=== PATIENT | female | born 1985 ===

== ENCOUNTER 2021-12-15 11:09 | Emergency (ER) | payer MEDICAID, SELFPAY ==
[2021-12-15 11:29] VITALS: BP 101/69; PULSE 101; RESP 18; TEMP 36.7; O2SAT 95; BMI 42.3
--- NOTE | 2021-12-15 11:52 | ED.NAVMDI ---
HPI - Nausea/Vomiting/Diarrhea General Chief complaint: Nausea/Vomiting/Diarrhea Stated complaint: Dizzy/vomiting Time Seen by Provider: 12/15/21 11:47 Source: patient Mode of arrival: ambulatory Limitations: no limitations History of Present Illness HPI Narrative: 36-year-old female presents to the ER for evaluation of nausea, vomiting and diarrhea that started at 02:00. She reports eating a steak and cheese Grater last night at 6 or 07:00 o'clock but had no pain or issues right after. Her entire family had pizza the day before. She reports several members of her family at home were also having similar symptoms. She denies any abdominal pain but reports some back pain now as well as fatigue, generalized body pain and intermittent dizziness. MD elicited complaint: nausea, vomiting and diarrhea Onset (ago): hour(s) Description of vomiting: food contents Description of diarrhea: semi-solid and loose Associated nausea: Yes Associated abdominal pain: No Location of pain: none Pain consistency: intermittent Severity: moderate Exacerbating factors: eating Relieving factors: none Context: possible food poisoning Associated symptoms: myalgias, fever/chills, loss of appetite, malaise, nausea/vomiting and weakness Related Data Previous Rx's Medication Instructions Recorded ibuprofen 600 mg tablet 600 mg PO Q8H PRN #10 tab 12/15/21 ondansetron 4 mg disintegrating 4 mg PO Q8H PRN #7 tab 12/15/21 tablet Allergies Allergy/AdvReac Type Severity Reaction Status Date / Time penicillin V Allergy Unknown Unverified 10/27/16 00:00 Penicillins [PCN] Allergy Unknown UNKNOWN Unverified 07/05/20 19:02 Review of Systems Review of Systems: Constitutional: No Fever, + Chills ENT/Mouth: No sore throat, No Rhinorrhea, No Swallowing Difficulty Cardiovascular: No Chest Pain, No SOB, No Orthopnea, No Edema Respiratory: No Cough, No Sputum, No Wheezing, No dyspnea Gastrointestinal: + Nausea, + Vomiting, + Diarrhea, No abdominal Pain, No Hematochezia, No Melena Genitourinary: No Dysuria, No Urinary Frequency, No Hematuria Musculoskeletal: No joint pain, + Myalgias Skin: No Skin Lesions, No rash Neuro: + Weakness, No Numbness, + Dizziness, No Headache Heme/Lymph: No Bruising, No Lymphadenopathy Endocrine: No Polyuria, No Polydipsia Gastrointestinal: Gastrointestinal: Reports nausea PMFSH Past Medical History Medical History (Updated 12/15/21 @ 13:15 by SPENCER Self) COVID-19 Depression Herpes simplex Hypoglycemia Hypothyroid Thalassemia alpha carrier Social History Social History Advance Directives: No Advance Directives Information Provided: No Patient : No Physical Exam Vital Signs: Vital Signs: Last Vital Signs Temp 99.5 F 12/15/21 12:18 Pulse 102 H 12/15/21 12:18 Resp 16 12/15/21 12:18 BP 114/59 L 12/15/21 12:18 Pulse Ox 96 12/15/21 12:18 BMI result Body Mass Index 42.3 Appearance: Alert. Oriented X3. No acute distress. Eyes: Pupils equal, round and reactive to light. ENT: Pharynx normal. Moist mucous membranes. Neck: Normal inspection. Neck supple. CVS: Normal heart rate and rhythm. Pulses normal. Respiratory: No respiratory distress. Breath sounds normal. Abdomen: Obese, Soft and nontender. +BS x4 Skin: Skin warm and dry. Normal skin color. Normal skin turgor. No rashes. Extremities: Normal inspection x4, atraumatic. Neuro: Oriented X 3. Grossly normal, nonfocal Course Course Course Narrative: 36-year-old female presents to the ER with acute onset of nausea, vomiting, diarrhea this started at 02:00 this morning. Multiple members of her family have the same symptoms. Question food related versus viral gastroenteritis. Will check her lab workup and rule out metabolic derangements given her muscle pains. Will check COVID swab as well. IV fluids and Zofran ordered. Will reassess. Reevaluation(s) Reevaluation #1: Patient is feeling better after IV hydration. Her lab workup is unremarkable. She is tolerating p.o.. She is stable for discharge home with antiemetics and supportive care. Patient agrees with plan. MDM - Nausea/Vomiting/Diarrhea Lab Data Result diagrams: 12/15/21 12:04 12/15/21 12:04 Labs: Lab Results 12/15/21 12/15/21 12/15/21 Range/Units 11:39 12:04 12:04 WBC 10.6 (4.8-10.8) X10*3/uL RBC 5.07 (4.20-5.50) X10*6/uL Hgb 13.1 (12.0-16.0) g/dl Hct 41.7 (37.0-47.0) % MCV 82.2 (80.0-98.0) fL MCH 25.8 L (27.0-33.0) pg MCHC 31.4 (31.0-35.0) g/dl RDW 13.1 (11.0-16.0) % Plt Count 351 (160-400) X10*3/uL MPV 9.4 (9.4-12.3) fL Immature Gran % (Auto) 0.3 (0.0-0.4) % Neut % (Auto) 89.1 H (45-73) % Lymph % (Auto) 6.0 L (20-40) % [place] % (Auto) 4.2 (2-11) % Eos % (Auto) 0.2 (0-4) % Baso % (Auto) 0.2 (0-2) % Lymph # (Auto) 0.6 L (1.2-4.9) X10*3/uL [place] # (Auto) 0.5 (0.1-1.2) X10*3/uL Eos # (Auto) 0.0 (0.0-0.4) X10*3/uL Baso # (Auto) 0.0 (0.0-0.2) X10*3/uL Abs Immat Gran (auto) 0.03 (0.00-0.03) X10*3/uL Absolute Neuts (auto) 9.5 H (2.0-8.3) x10*3/uL Absolute Nucleated RBC 0.000 (0.0-0.012) X10*3/uL Nucleated RBC % (auto) 0.0 (0.0-0.2) /100WBC Sodium 136 (135-145) mmol/L Potassium 3.9 (3.3-5.1) mmol/L Chloride 104 (96-108) mmol/L Carbon Dioxide 24 (22-29) mmol/L Anion Gap 12 (12-20) BUN 18 H (9-16) mg/dL Creatinine 0.81 (0.5-1.4) mg/dL Estim Creat Clear Calc 111.2 Estimated GFR > 60 Random Glucose 106 (60-115) mg/dL Calcium 8.8 (8.4-10.2) mg/dL Magnesium 2.1 (1.6-2.6) mg/dL Total Bilirubin 0.7 (0.0-1.0) mg/dL Direct Bilirubin 0.2 (0.0-0.5) mg/dL AST 15 (5-31) U/L ALT 12 (0-31) U/L Alkaline Phosphatase 92 (39-117) U/L Total Protein 7.9 (6.5-8.0) g/dL Albumin 4.3 (3.5-5.0) g/dL Lipase 19 (8-78) U/L Urine Color Urine Appearance Urine pH (5.0-8.0) Ur Specific [place] (1.005-1.025) Urine Protein (NEG-TRACE) MG/DL Urine Glucose (UA) (NEG) MG/DL Urine Ketones (NEG) MG/DL Urine Blood (NEG) Urine Nitrite (NEG) Ur Leukocyte Esterase (NEG) Urine Test (NEGATIVE) COVID-19 (ARIE) Negative (Negative) COVID-19 Clin Com See Note 12/15/21 12/15/21 Range/Units 13:11 13:11 WBC (4.8-10.8) X10*3/uL RBC (4.20-5.50) X10*6/uL Hgb (12.0-16.0) g/dl Hct (37.0-47.0) % MCV (80.0-98.0) fL MCH (27.0-33.0) pg MCHC (31.0-35.0) g/dl RDW (11.0-16.0) % Plt Count (160-400) X10*3/uL MPV (9.4-12.3) fL Immature Gran % (Auto) (0.0-0.4) % Neut % (Auto) (45-73) % Lymph % (Auto) (20-40) % [place] % (Auto) (2-11) % Eos % (Auto) (0-4) % Baso % (Auto) (0-2) % Lymph # (Auto) (1.2-4.9) X10*3/uL [place] # (Auto) (0.1-1.2) X10*3/uL Eos # (Auto) (0.0-0.4) X10*3/uL Baso # (Auto) (0.0-0.2) X10*3/uL Abs Immat Gran (auto) (0.00-0.03) X10*3/uL Absolute Neuts (auto) (2.0-8.3) x10*3/uL Absolute Nucleated RBC (0.0-0.012) X10*3/uL Nucleated RBC % (auto) (0.0-0.2) /100WBC Sodium (135-145) mmol/L Potassium (3.3-5.1) mmol/L Chloride (96-108) mmol/L Carbon Dioxide (22-29) mmol/L Anion Gap (12-20) BUN (9-16) mg/dL Creatinine (0.5-1.4) mg/dL Estim Creat Clear Calc Estimated GFR Random Glucose (60-115) mg/dL Calcium (8.4-10.2) mg/dL Magnesium (1.6-2.6) mg/dL Total Bilirubin (0.0-1.0) mg/dL Direct Bilirubin (0.0-0.5) mg/dL AST (5-31) U/L ALT (0-31) U/L Alkaline Phosphatase (39-117) U/L Total Protein (6.5-8.0) g/dL Albumin (3.5-5.0) g/dL Lipase (8-78) U/L Urine Color YELLOW Urine Appearance CLEAR Urine pH 6.0 (5.0-8.0) Ur Specific [place] <= 1.005 (1.005-1.025) Urine Protein NEG (NEG-TRACE) MG/DL Urine Glucose (UA) NEG (NEG) MG/DL Urine Ketones NEG (NEG) MG/DL Urine Blood NEG (NEG) Urine Nitrite NEG (NEG) Ur Leukocyte Esterase NEG (NEG) Urine Test NEGATIVE (NEGATIVE) COVID-19 (ARIE) (Negative) COVID-19 Clin Com Critical Care Time Critical Care Time Critical Care Time: No Discharge Plan Discharge Clinical Impression: Gastroenteritis Patient Disposition: Home, Self-Care Instructions: Gastroenteritis (DC) Additional Instructions: Your lab workup today was normal. Urine test showed no infection. Your symptoms are most likely due to a viral GI bug also notes gastroenteritis. Treatment is supportive care. It will get better with time. Take the prescribed medication as needed for nausea and vomiting. Rest and stay hydrated, drink plenty of fluids. Stick to a bland diet where not feeling well. Take ibuprofen or acetaminophen as needed for body aches and pains. Recommend [id number] Pepto-Bismol or Imodium as needed for upset stomach and diarrhea. Follow-up with your doctor as needed. If you develop new or worsening symptoms call 911 or come back to the ER for further evaluation. Prescriptions: New ondansetron 4 mg tablet,disintegrating 4 mg PO Q8H PRN (Reason: nausea and vomiting) Qty: 7 0RF ibuprofen 600 mg tablet 600 mg PO Q8H PRN (Reason: pain) Qty: 10 0RF
[2021-12-15 12:01] LABS: COVID-19 Test Negative (Negative); IDNOW Serial# 16C4AD1C
[2021-12-15 12:09] LABS: MANUAL DIFF FLAG NO
[2021-12-15] MEDS: ondansetron HCL 4 MG/2 ML VIAL IVPUSH (12:12)
[2021-12-15] MEDS: 0.9 % Sodium Chloride 1,000 ML 999 ML IVCONT (12:12)
[2021-12-15 12:14] LABS: Basophils Percent Auto 0.2 % (0-2); Eosinophils Percent Auto 0.2 % (0-4); Hematocrit 41.7 % (37.0-47.0); Hemoglobin 13.1 g/dl (12.0-16.0); Imm Gran Abs Auto 0.03 X10*3/uL (0.00-0.03); Imm Gran Pct Auto 0.3 % (0.0-0.4); Lymphocytes Absolute Auto 0.6 X10*3/uL (1.2-4.9); Mean Corpuscular HGB Conc 31.4 g/dl (31.0-35.0); Mean Corpuscular Hemoglobin 25.8 pg (27.0-33.0); Mean Corpuscular Volume 82.2 fL (80.0-98.0); Mean Platelet Volume 9.4 fL (9.4-12.3); Monocytes Absolute Auto 0.5 X10*3/uL (0.1-1.2); Monocytes Percent Auto 4.2 % (2-11); Neutrophils Absolute Auto 9.5 x10*3/uL (2.0-8.3); Neutrophils Percent Auto 89.1 % (45-73); Platelet Count 351 X10*3/uL (160-400); Red Blood Count 5.07 X10*6/uL (4.20-5.50); Red Cell Distribution Width 13.1 % (11.0-16.0); White Blood Count 10.6 X10*3/uL (4.8-10.8)
[2021-12-15 12:18] VITALS: BP 114/59; PULSE 102; RESP 16; TEMP 37.5; O2SAT 96
[2021-12-15 12:29] LABS: Alanine Aminotransferase 12 U/L (0-31); Albumin Level 4.3 g/dL (3.5-5.0); Alkaline Phosphatase 92 U/L (39-117); Anion Gap 12 (12-20); Aspartate Amino Transferase 15 U/L (5-31); Bilirubin Direct 0.2 mg/dL (0.0-0.5); Bilirubin Total 0.7 mg/dL (0.0-1.0); Blood Urea Nitrogen 18 mg/dL (9-16); Calcium 8.8 mg/dL (8.4-10.2); Carbon Dioxide 24 mmol/L (22-29); Chloride 104 mmol/L (96-108); Creatinine Clr Calc Pharmacy 111.2; Estimated Glomerular Filt Rate > 60; Glucose Random 106 mg/dL (60-115); Lipase 19 U/L (8-78); Magnesium 2.1 mg/dL (1.6-2.6); Potassium 3.9 mmol/L (3.3-5.1); Sodium 136 mmol/L (135-145); Total Protein 7.9 g/dL (6.5-8.0)
[2021-12-15 13:25] LABS: Appearance Urine CLEAR; Color Urine YELLOW; Glucose Urine UA NEG (NEG); Leukocyte Esterase Urine NEG (NEG); Nitrite Urine NEG (NEG); Specific Gravity - Urine <= 1.005 (1.005-1.025); Urine Blood NEG (NEG); Urine Ketones NEG (NEG); Urine Protein NEG (NEG-TRACE)
[2021-12-15 13:27] LABS: UPreg QC Valid YES; Urine Pregnancy NEGATIVE (NEGATIVE)
[2021-12-15] MEDS: Ketorolac Tromethamine 30 MG/ML VIAL IVPUSH (13:37)
== END 2021-12-15 14:47 | disposition home or self-care (01) ==
PROVIDERS: Physician Assistant; Emergency Provider Emergency Medicine Emergency Medical Services; PCP Registered Nurse
DX: K52.9 Noninfective gastroenteritis and colitis, unspecified (principal); R11.2 Nausea with vomiting, unspecified; R42 Dizziness and giddiness; M79.10 Myalgia, unspecified site; Z20.822 Contact with and (suspected) exposure to COVID-19; Z79.899 Other long term (current) drug therapy
CPT/HCPCS: 36415; 80048; 80076; 81003; 81025; 83690; 83735; 85025; 87635; 96374; 96376; 99285; J1885; J2405

== ENCOUNTER 2022-08-05 19:27 | Emergency (ER) | payer MEDICAID, SELFPAY ==
--- NOTE | ~2022-08-05 | XR_ITS ---
EXAMINATION: XR CHEST CLINICAL INFORMATION: Chest pain COMPARISON: 01/06/2016 TECHNIQUE: Frontal view of the chest was obtained. FINDINGS: No significant abnormality is noted involving the heart, lungs, mediastinum, bony thorax or soft tissues. XR/XR chest 1V IMPRESSION: Unremarkable examination.
[2022-08-05 19:33] VITALS: BP 136/85; PULSE 77; RESP 16; TEMP 36.7; O2SAT 98; BMI 42.3
--- NOTE | 2022-08-05 19:38 | ECG_ITS ---
Test Reason : CHEST PAIN Blood Pressure : / mmHG Vent. Rate : 076 BPM Atrial Rate : 076 BPM P-R Int : 252 ms QRS Dur : 108 ms QT Int : 372 ms P-R-T Axes : 051 -11 006 degrees QTc Int : 418 ms Sinus rhythm with 1st degree A-V block Incomplete right bundle branch block Borderline ECG No previous ECGs available Referred By: Generic ED Physician Electronically Signed By:KEVAN VILLALOBOS MD
[2022-08-05 19:58] LABS: Basophils Absolute Auto 0.1 X10*3/uL (0.0-0.2); Basophils Percent Auto 0.5 % (0-2); Eosinophils Absolute Auto 0.1 X10*3/uL (0.0-0.4); Eosinophils Percent Auto 0.6 % (0-4); Hematocrit 36.8 % (37.0-47.0); Hemoglobin 11.8 g/dl (12.0-16.0); Imm Gran Abs Auto 0.03 X10*3/uL (0.00-0.03); Imm Gran Pct Auto 0.3 % (0.0-0.4); Lymphocytes Absolute Auto 2.9 X10*3/uL (1.2-4.9); Lymphocytes Percent Auto 30.8 % (20-40); MANUAL DIFF FLAG NO; Mean Corpuscular HGB Conc 32.1 g/dl (31.0-35.0); Mean Corpuscular Hemoglobin 25.8 pg (27.0-33.0); Mean Corpuscular Volume 80.3 fL (80.0-98.0); Mean Platelet Volume 9.5 fL (9.4-12.3); Monocytes Absolute Auto 0.7 X10*3/uL (0.1-1.2); Monocytes Percent Auto 7.4 % (2-11); Neutrophils Absolute Auto 5.6 x10*3/uL (2.0-8.3); Neutrophils Percent Auto 60.4 % (45-73); Platelet Count 295 X10*3/uL (160-400); Red Blood Count 4.58 X10*6/uL (4.20-5.50); Red Cell Distribution Width 13.3 % (11.0-16.0); White Blood Count 9.3 X10*3/uL (4.8-10.8)
[2022-08-05 20:10] LABS: Anion Gap 14 (12-20); Blood Urea Nitrogen 21 mg/dL (9-16); Calcium 8.9 mg/dL (8.4-10.2); Carbon Dioxide 22 mmol/L (22-29); Chloride 107 mmol/L (96-108); Creatinine Clr Calc Pharmacy 101.3; Estimated Glomerular Filt Rate > 60; Glucose Random 109 mg/dL (60-115); Potassium 4.2 mmol/L (3.3-5.1); Sodium 139 mmol/L (135-145)
[2022-08-05 20:12] LABS: COVID-19 Test Negative (Negative); IDNOW Serial# 16C4AD1C
[2022-08-05 20:16] LABS: Troponin-I High Sensitivity < 3.5 ng/L (<3.5-17.0)
--- NOTE | 2022-08-05 21:33 | ED.CHESTPAIN ---
HPI - Chest Pain General Chief Complaint: Chest Pain Stated Complaint: chest pain Time Seen by Provider: 08/05/22 21:20 Source: patient Mode of arrival: ambulatory Limitations: no limitations History of Present Illness HPI narrative: 37-year-old female with history of thyroid disease who presents with complaints of chest pressure which began while lying flat at 05:30 today with no associated palpitations, cough, shortness of breath, diaphoresis, fevers or chills. Patient has any recent travel or sick contact. No leg swelling or leg pain. No OCP use. Related Data Previous Rx's Medication Instructions Recorded ibuprofen 600 mg tablet 600 mg PO Q8H PRN pain #10 tabs 12/15/21 ondansetron 4 mg disintegrating 4 mg PO Q8H PRN nausea and 12/15/21 tablet vomiting #7 tabs Allergies Allergy/AdvReac Type Severity Reaction Status Date / Time penicillin V Allergy Unknown Unverified 10/27/16 00:00 Penicillins [PCN] Allergy Unknown UNKNOWN Unverified 07/05/20 19:02 Review of Systems Review of Systems: Yes all other systems are reviewed and are negative Constitutional: Constitutional: Reports no additional constitutional complaints, Denies body ache(s), Denies chills, Denies fever(s), Denies headache(s) and Denies weakness Eyes: Eyes: Reports no additional eye complaints and Denies change in vision ENT: Reports system reviewed and no additional complaints, except as documented, Denies dizziness, Denies headache(s), Denies nasal congestion, Denies nasal discharge and Denies neck pain Cardiovascular: Cardiovascular: Reports no additional cardiovascular complaints, Reports chest pain, Denies leg edema and Denies dyspnea Respiratory: Respiratory: Reports no additional respiratory complaints, Denies cough and Denies dyspnea Gastrointestinal: Gastrointestinal: Reports no additional gastrointestinal complaints, Denies abdominal pain, Denies diarrhea, Denies nausea and Denies vomiting Genitourinary: Genitourinary: Reports no additional female genitourinary complaints and Denies urinary incontinence Musculoskeletal: Musculoskeletal: Reports no additional musculoskeletal complaints, Denies back pain, Denies arthralgias, Denies joint swelling, Denies neck pain, Denies numbness and Denies tingling Integumentary/Breasts: Skin/Breast: Reports system reviewed and no additional complaints, except as docu and Denies rash Neurologic: Reports system reviewed and no additional complaints, except as documented, Denies Abnormal speech present, Denies dizziness, Denies headache(s), Denies numbness, Denies tingling and Denies weakness PMFSH Past Medical History Attestation statement: The following information was validated with the patient. Source: old records reviewed and nursing notes reviewed Medical History COVID-19 Depression Herpes simplex Hypoglycemia Hypothyroid Thalassemia alpha carrier Social History Social History Advance Directives: No Physical Exam Vital Signs: Vital Signs: Last Vital Signs Temp 98.0 F 08/05/22 21:53 Pulse 68 08/05/22 21:53 Resp 14 08/05/22 21:53 BP 125/75 08/05/22 21:53 Pulse Ox 98 08/05/22 21:53 O2 Del Method 08/05/22 21:53 BMI result Body Mass Index 42.3 Const: General: cooperative, healthy appearing, comfortable and no acute distress Orientation/consciousness: patient oriented x3 Limitations: no limitations HEENT: Head: Yes normal to inspection Ears: hearing grossly normal bilaterally General nose exam: Normal external nose present Face and sinus: Yes normal facial exam Mouth: Normal oral and palatal mucosa present Throat: Yes posterior oropharynx normal Eyes: General: appearance normal, both eyes and all related structures Pupils: Equal, round and reactive pupils present Neck: Neck: Yes normal visual inspection Chest: Other: Central chest tender to palpation Chest palpation & inspection: normal inspection of the chest Resp: Effort & Inspection: normal respiratory effort Auscultation: clear to auscultation bilaterally Cardio: Rate: regular rate Rhythm: regular rhythm Peripheral pulses: Peripheral pulses 2+ throughout GI: Inspection: Yes normal to inspection Palpation (GI): Soft to palpation and nontender Auscultation: normal bowel sounds Back/Spine/Pelvis: Thoracic/Lumbar Spine: thoracic and lumbar spine normal to inspection Skin: General skin exam: no rashes or lesions noted Neuro: General: patient oriented x3, no focal motor deficits and normal sensation to monofilament Cranial nerves: Yes Equal, round and reactive pupils present Cognition (Neuro): normal cognition Speech: No Abnormal speech present Gait exam (Neuro): Normal gait present Motor exam (neuro): 5/5 motor strength present throughout Extrem: General: Yes normal to inspection, Yes no pedal edema and Yes no calf tenderness Course Course Course Narrative: Troponin x2 are negative. EKG shows no ischemic changes. Chest x-ray is negative for any infection. Plan for discharge home. Reviewed worrisome signs and symptoms of when to return to the emergency room. Comfortable discharge home. MDM - Chest Pain MDM Narrative Medical decision making narrative: 37-year-old female here with chest pressure which began at 05:30 today while lying flat and is worsened with palpation. No associated symptoms. Will check labs, chest x-ray, EKG Low concern for PE with no hypoxia, no tachypnea, no clinical findings concerning for DVT and perc score 0 Low concern for ACS with heart score 0 Medical Records Data Attestation: I reviewed the patient's medical records. Lab Data Attestation: I reviewed the patient's lab results. Result diagrams: 08/05/22 19:49 08/05/22 19:49 Labs: Lab Results 08/05/22 08/05/22 08/05/22 Range/Units 19:49 19:49 19:49 WBC 9.3 (4.8-10.8) X10*3/uL RBC 4.58 (4.20-5.50) X10*6/uL Hgb 11.8 L (12.0-16.0) g/dl Hct 36.8 L (37.0-47.0) % MCV 80.3 (80.0-98.0) fL MCH 25.8 L (27.0-33.0) pg MCHC 32.1 (31.0-35.0) g/dl RDW 13.3 (11.0-16.0) % Plt Count 295 (160-400) X10*3/uL MPV 9.5 (9.4-12.3) fL Immature Gran % (Auto) 0.3 (0.0-0.4) % Neut % (Auto) 60.4 (45-73) % Lymph % (Auto) 30.8 (20-40) % [place] % (Auto) 7.4 (2-11) % Eos % (Auto) 0.6 (0-4) % Baso % (Auto) 0.5 (0-2) % Lymph # (Auto) 2.9 (1.2-4.9) X10*3/uL [place] # (Auto) 0.7 (0.1-1.2) X10*3/uL Eos # (Auto) 0.1 (0.0-0.4) X10*3/uL Baso # (Auto) 0.1 (0.0-0.2) X10*3/uL Abs Immat Gran (auto) 0.03 (0.00-0.03) X10*3/uL Absolute Neuts (auto) 5.6 (2.0-8.3) x10*3/uL Absolute Nucleated RBC 0.000 (0.0-0.012) X10*3/uL Nucleated RBC % (auto) 0.0 (0.0-0.2) /100WBC Sodium 139 (135-145) mmol/L Potassium 4.2 (3.3-5.1) mmol/L Chloride 107 (96-108) mmol/L Carbon Dioxide 22 (22-29) mmol/L Anion Gap 14 (12-20) BUN 21 H (9-16) mg/dL Creatinine 0.88 (0.5-1.4) mg/dL Estim Creat Clear Calc 101.3 Estimated GFR > 60 Random Glucose 109 (60-115) mg/dL Calcium 8.9 (8.4-10.2) mg/dL Total Bilirubin 0.3 (0.0-1.0) mg/dL Direct Bilirubin < 0.2 (0.0-0.5) mg/dL AST 15 (5-31) U/L ALT 13 (0-31) U/L Alkaline Phosphatase 83 (39-117) U/L Troponin I High Sens (<3.5-17.0) ng/L Total Protein 7.3 (6.5-8.0) g/dL Albumin 4.1 (3.5-5.0) g/dL Urine Color Urine Appearance Urine pH (5.0-9.0) Ur Specific [place] (1.005-1.025) Urine Protein (Neg-Trace) mg/dL Urine Glucose (UA) (Negative) mg/dL Urine Ketones (Negative) mg/dL Urine Blood (Negative) Urine Nitrite (Negative) Ur Leukocyte Esterase (Negative) COVID-19 (ARIE) Negative (Negative) COVID-19 Clin Com See Note 08/05/22 08/05/22 08/05/22 Range/Units 19:49 21:49 21:49 WBC (4.8-10.8) X10*3/uL RBC (4.20-5.50) X10*6/uL Hgb (12.0-16.0) g/dl Hct (37.0-47.0) % MCV (80.0-98.0) fL MCH (27.0-33.0) pg MCHC (31.0-35.0) g/dl RDW (11.0-16.0) % Plt Count (160-400) X10*3/uL MPV (9.4-12.3) fL Immature Gran % (Auto) (0.0-0.4) % Neut % (Auto) (45-73) % Lymph % (Auto) (20-40) % [place] % (Auto) (2-11) % Eos % (Auto) (0-4) % Baso % (Auto) (0-2) % Lymph # (Auto) (1.2-4.9) X10*3/uL [place] # (Auto) (0.1-1.2) X10*3/uL Eos # (Auto) (0.0-0.4) X10*3/uL Baso # (Auto) (0.0-0.2) X10*3/uL Abs Immat Gran (auto) (0.00-0.03) X10*3/uL Absolute Neuts (auto) (2.0-8.3) x10*3/uL Absolute Nucleated RBC (0.0-0.012) X10*3/uL Nucleated RBC % (auto) (0.0-0.2) /100WBC Sodium (135-145) mmol/L Potassium (3.3-5.1) mmol/L Chloride (96-108) mmol/L Carbon Dioxide (22-29) mmol/L Anion Gap (12-20) BUN (9-16) mg/dL Creatinine (0.5-1.4) mg/dL Estim Creat Clear Calc Estimated GFR Random Glucose (60-115) mg/dL Calcium (8.4-10.2) mg/dL Total Bilirubin (0.0-1.0) mg/dL Direct Bilirubin (0.0-0.5) mg/dL AST (5-31) U/L ALT (0-31) U/L Alkaline Phosphatase (39-117) U/L Troponin I High Sens < 3.5 < 3.5 (<3.5-17.0) ng/L Total Protein (6.5-8.0) g/dL Albumin (3.5-5.0) g/dL Urine Color Yellow Urine Appearance Clear Urine pH 6.5 (5.0-9.0) Ur Specific [place] 1.020 (1.005-1.025) Urine Protein Negative (Neg-Trace) mg/dL Urine Glucose (UA) Negative (Negative) mg/dL Urine Ketones Negative (Negative) mg/dL Urine Blood Negative (Negative) Urine Nitrite Negative (Negative) Ur Leukocyte Esterase Negative (Negative) COVID-19 (ARIE) (Negative) COVID-19 Clin Com Imaging Data Chest x-ray: Attestation: I personally reviewed and interpreted this imaging study as follows: Radiologist's impression: EXAMINATION: XR CHEST CLINICAL INFORMATION: Chest pain COMPARISON: 01/06/2016 TECHNIQUE: Frontal view of the chest was obtained. FINDINGS: No significant abnormality is noted involving the heart, lungs, mediastinum, bony thorax or soft tissues. XR/XR chest 1V IMPRESSION: Unremarkable examination. ECG Data ECG #1: Attestation: I personally reviewed and interpreted this ECG as follows: ECG interpretation date: 08/05/22 ECG interpretation time: 19:44 Interpretation: Sinus rhythm with first-degree AV block with rate of 76, normal QRS, normal QT Discharge Plan Discharge Clinical Impression: Atypical chest pain Patient Disposition: Home, Self-Care Instructions: Chest Pain (DC) Additional Instructions: Lab work, EKG and chest x-ray are reassuring Return for worsening symptoms Follow-up with PCP Prescriptions: No Action ondansetron 4 mg tablet,disintegrating 4 mg PO Q8H PRN (Reason: nausea and vomiting) Qty: 7 0RF ibuprofen 600 mg tablet 600 mg PO Q8H PRN (Reason: pain) Qty: 10 0RF Referrals: Physician,Unknown J [Primary Care Provider] - Stand Alone Forms: Work/School Release
[2022-08-05 21:53] VITALS: BP 125/75; PULSE 68; RESP 14; TEMP 36.7; O2SAT 98
--- NOTE | 2022-08-05 21:54 | PC.NURSE ---
patient states her chest pain comes and goes, first started today around 5:30ish. she states the pain is worse is she touches her chest and currently states the pain is 5/10.
[2022-08-05 21:57] LABS: Appearance Urine Clear; Color Urine Yellow; Glucose Urine UA Negative (Negative); Leukocyte Esterase Urine Negative (Negative); Nitrite Urine Negative (Negative); PH 6.5 (5.0-9.0); Urine Blood Negative (Negative); Urine Ketones Negative (Negative); Urine Protein Negative (Neg-Trace)
[2022-08-05 22:16] LABS: Troponin-I High Sensitivity < 3.5 ng/L (<3.5-17.0)
[2022-08-05 22:32] LABS: Alanine Aminotransferase 13 U/L (0-31); Albumin Level 4.1 g/dL (3.5-5.0); Alkaline Phosphatase 83 U/L (39-117); Aspartate Amino Transferase 15 U/L (5-31); Bilirubin Direct < 0.2 mg/dL (0.0-0.5); Bilirubin Total 0.3 mg/dL (0.0-1.0); Total Protein 7.3 g/dL (6.5-8.0)
[2022-08-05 22:45] VITALS: BP 111/64; PULSE 70; RESP 12; TEMP 36.7; O2SAT 97
== END 2022-08-05 22:59 | disposition home or self-care (01) ==
PROVIDERS: Emergency Medicine; Nurse Practitioner Family; Emergency Provider Internal Medicine
DX: R07.89 Other chest pain (principal); Z20.822 Contact with and (suspected) exposure to COVID-19; Z79.899 Other long term (current) drug therapy
CPT/HCPCS: 36415; 71045; 80048; 80076; 81003; 84484; 85025; 87635; 93005; 99283; 99284

== ENCOUNTER 2023-07-04 09:13 | Emergency (ER) | payer OTHER, MEDICAID, SELFPAY ==
[2023-07-04 09:22] VITALS: BP 146/75; PULSE 75; RESP 18; TEMP 36.7; O2SAT 99; BMI 42.5
[2023-07-04 09:44] VITALS: BP 124/76; PULSE 79; RESP 17; TEMP 36.7; O2SAT 98
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
[2023-07-04] MEDS: Ibuprofen 400 MG TABLET PO (10:13)
== END 2023-07-04 10:15 | disposition home or self-care (01) ==
PROVIDERS: Emergency Provider Student in an Organized Health Care Education/Training Program; PCP Internal Medicine
DX: S09.8XXA Other specified injuries of head, initial encounter (principal); Y04.2XXA Assault by strike against or bumped into by another person, initial encounter; Y93.9 Activity, unspecified; Y92.89 Other specified places as the place of occurrence of the external cause; Y99.0 Civilian activity done for income or pay
CPT/HCPCS: 99283

== ENCOUNTER 2025-06-07 08:48 | Outpatient (AMB) | payer MEDICAID, SELFPAY ==
--- OUTSIDE RECORDS SUMMARY | 2025-06-06 09:45 | XMS_ITS | Encounter Summary ---
Author Organization [facility] Address [address] [place] [id number] Phone Care Team Providers Care Fingerer Name Role Phone Aamir Reveles MD Primary Care Provider [phone] Reason for Referral * Consultation (Within 1 month) - New Request Specialty Diagnoses / Procedures Referred By Fifi helm Referred To Contact Diagnoses Sleep disorder Aamir Reveles MD [address] [place] [address] Phone: tel: fax: [email or web address] [place], [place], Referral ID Status Reason Start Date Expiration Date V isits Requested Visits Authorized [id number] New Request 06/06/2025 06/06/2026 1 1 Reason for Visit * Reason Comments Follow Up Visit 6 mon f/u Encounter Details Date Type Department Care Team (Late st Contact Info) Description 06/06/2025 9:45 AM EDT Office Visit [facility] [address] [place], [place] [phone] Aamir Reveles MD [address] [place], [place] [email or web address] Sleep disorder (Primary Dx); Folic acid deficiency; Acquired hemolytic anemia; Heterozygous thalassemia; Prediabetes; Severe obesity (BMI >= 40) Social History Tobacco Use Types Packs/Day Years Used Date Smoking Tobacco: Never Smokeless Tobacco: Never Alcohol Use Standard Drinks/Week Comments Yes 0 (1 standard drink = 0.6 oz pur e alcohol) rarely Child or Family Care Answer Date Record ed Do you have problems with on e of the following making it difficult for you to work, study, or receive health care? No 12/08/2024 Education Answer Date Recorded Are you interested in help w ith more adult education (for example, completing high school, GED, job training, learning the [place] language, technical skills, or developing parenting skills)? No 12/08/2024 Are you concerned about learning? Not on file 12/08/2024 No 12/08/2024 Yes 12/08/2024 Food Answer Date Recorded Within the past 6 months we worried whether our food would run out before we got money to buy more. Often True 12/08/2024 Within the past 6 months the food we bought just didn't last and we didn't have enough money to get more. Often True Residential Stability Answer Date Recor ded What is your housing situation today? I have markell sing 12/08/2024 How many times have you move d in the past 12 months? Zero (I did not move) 12/08/2024 Paying for Meds Answer Date Recorded Do you have trouble paying for medicines? No 12/08/2024 Paying Utility Bills Answer Date Record ed Do you have trouble paying your heating or elect ricity bill? Yes 12/08/2024 Transportation Answer Date Recorded Has the lack of transportati on kept you from medical appointments or from getting medications? No 12/08/2024 Unemployment Answer Date Recorded Are you currently unemployed or working on a part-time or temporary basis, and looking for work? Yes 12/08/2024 Digital Access Answer Date Recorded No 12/08/2024 Yes 12/08/2024 Do you have reliable internet access at home? Ye s 12/08/2024 Do you have a device (e.g., phone, tablet, computer) with a working camera? Yes 12/08/2024 SNAP & WIC Answer Date Recorded Do you receive benefits from SNAP (the Supplemental Nutrition Assistance Program) or the Food Stamp Program? Yes 12/08/2024 SNAP is a free program, interested in learning m ore? Not on file 12/08/2024 Can we help you enroll in SNAP? Not on file 12/08/2024 Benefits received from WIC? Not on file 11/20 WIC is a free program, interested in learning mo re? Not on file 12/08/2024 Can we help you enroll in WIC? Not on file 0 12/08/2024 Intimate Partner Violence Answer Date R ecorded Denied Basic Needs Not on file 12/08/2024 In the past 12 months have y ou been in a relationship with a person who hurts, threatens, or tries to control you? No 12/08/2024 Worried food would run out Not on file 12/08 In the past 12 months have y ou been in a relationship with a person who hurts, threatens, or tries to control you? No 12/08/2024 Comments No Sex and Gender Information Value Date Recorded Sex Assigned at Female 11/30/2019 8:15 AM EST Legal Sex Female 7:49 PM EST Gender Identity Female 11/30/2019 8:15 AM EST Sexual Orientation Straight 11/30/2019 8: 15 AM EST documented as of this encounter Last Filed Vital Signs Vital Sign Reading Time Taken Comments Blood Pressure 104/76 06/06/2025 9:48 AM EDT Pulse 75 06/06/2025 9:48 AM EDT Temperature 36.2 C (97.2 F) 06/06/2025 9:48 AM EDT Respiratory Rate 14 06/06/2025 9:48 AM EDT Oxygen Saturation 98% 06/06/2025 9:48 AM EDT Inhaled Oxygen Concentration - - Weight 105.9 kg (233 lb 6.4 oz) 06/06/2025 9:48 AM EDT Height 160.6 cm (5' 3.23 ) 06/06/2025 9:48 AM ED T Body Mass Index 41.05 06/06/2025 9:48 AM EDT documented in this encounter Patient Instructions * Patient Instructions* Aamir Reveles MD - 06/06/2025 9:45 AM EDT 4 gm of fish oil in the morning, keep fish oil in the fridge documented in this encounter Progress Notes * Aamir Reveles MD - 06/06/2025 9:45 AM EDT Subjective: Patient ID: Kaylene Taveras is a 40 y.o. female. This patient comes in for a follow-up on prediabetes, hypothyroidism, thalassemia, previous referral to the sleep center for sleep apnea presumed. Currently working at [employer] different shifts sometimes evening shift sometimes early shift. The nature of her work requires that she do the different shifts at different times. Also what appended in her life was that she took over custody of 2 nieces and so her and her have to take care of the nieces while working as well. Sometimes she is having trouble with compliance on the levothyroxine. I told her it is difficult to adjust the Levoxylso we might have to repeat the study after the patient takes the Levoxyl regularly. Discussed with the patient the importance of pillboxes and regular habits so that compliance can be adhered to. Otherwise she is doing fairly well. Her notes that she gasps in her sleep which might be sleep apnea. I set her up with sleep medicine in [place]. Current Outpatient Medications Ordered in [facility]: ibuprofen (ADVIL,MOTRIN) 400 MG tablet, Take 400 mg by mouth every 6 (six) hours as needed. levothyroxine (SYNTHROID, LEVOTHROID) 150 MCG tablet, TAKE 1 TABLET BY MOUTH EVERY DAY IN THE MORNING naproxen (NAPROSYN) 250 MG tablet, Take 1 tablet (250 mg total) by mouth 2 (two) times a day with meals. nystatin (NYSTOP) powder, Apply topically 2 (two) times a day. Apply below abdominal fold Review of Systems Objective: Physical Exam Vitals reviewed. Constitutional: Appearance: She is well-developed. HENT: Head: Normocephalic and atraumatic. Eyes: General: No scleral icterus. Conjunctiva/sclera: Conjunctivae normal. Cardiovascular: Rate and Rhythm: Normal rate and regular rhythm. Heart sounds: Normal heart sounds. No murmur heard. No friction rub. No gallop. Pulmonary: Effort: Pulmonary effort is normal. No respiratory distress. Breath sounds: Normal breath sounds. No wheezing or rales. Chest: Chest wall: No tenderness. Musculoskeletal: Cervical back: Normal range of motion and neck supple. Right lower leg: No edema. Left lower leg: No edema. Skin: General: Skin is warm and dry. Neurological: Mental Status: She is alert and oriented to person, place, and time. Cranial Nerves: No cranial nerve deficit. Psychiatric: Behavior: Behavior normal. Thought Content: Thought content normal. Judgment: Judgment normal. Blood pressure 104/76, pulse 75, temperature 36.2 ??C (97.2 ??F), temperature source Temporal, resp. rate 14, height 160.6 cm (5' 3.23 ), weight 105.9 kg (233 lb 6.4 oz), SpO2 98%, not currently . Assessment/Plan: Problem List Items Addressed This Visit Heterozygous thalassemia Acquired hemolytic anemia Severe obesity (BMI >= 40) counseled the pt on eating a low calorie diet to reduce excess weight. We talked about calorie restriction, weight watchers and exercise as possible to help move weight in the right direction. Prediabetes Will obtain a hemoglobin A1c today and again in 6 months on physical exam. Counseled patient on diabetic diet Sleep disorder - Primary Will obtain a sleep study through [facility] sleep medicine to determine if PHILIPP. She should then be on CPAP if she has sleep apnea. Relevant Orders External Referral to Neurology ([facility]) Folic acid deficiency Will check a folic acid level along with a TSH today. Will hold off on any adjustments to Levoxyl but I will put the patient back on folic acid if the folic acid level is low. She should have pillboxes to maintain compliance. Relevant Orders Folate documented in this encounter Miscellaneous Notes * Assessment & Plan Note - Aamir Reveles MD - 06/06/2025 10:24 AM EDTAssociated Problem(s): Folic acid deficiency Will check a folic acid level along with a TSH today. Will hold off on any adjustments to Levoxyl but I will put the patient back on folic acid if the folic acid level is low. She should have pillboxes to maintain compliance. * Assessment & Plan Note - Aamir Reveles MD - 06/06/2025 10:24 AM EDTAssociated Problem(s): Prediabetes Will obtain a hemoglobin A1c today and again in 6 months on physical exam. Counseled patient on diabetic diet * Assessment & Plan Note - Aamir Reveles MD - 06/06/2025 10:23 AM EDTAssociated Problem(s): Severe obesity (BMI >= 40) counseled the pt on eating a low calorie diet to reduce excess weight. We talked about calorie restriction, weight watchers and exercise as possible to help move weight in the right direction. * Assessment & Plan Note - Aamir Reveles MD - 06/06/2025 10:23 AM EDTAssociated Problem(s): Sleep disorder Will obtain a sleep study through [facility] sleep medicine to determine if PHILIPP. She should then be on CPAP if she has sleep apnea. documented in this encounter Plan of Treatment Upcoming Encounters Date Type Department Care Team (Late st Contact Info) Description 12/08/2025 8:30 AM EST Office Visit [facility] [address] [place] [address] Aamir Reveles MD [address] [place] [address] [email or web address] Scheduled Referrals Name Type Priority Associated Diagnoses Orde r Schedule External Referral to Neurology ([facility]) Outpatient Referral Routine Sleep disorder Ordered: 06/06/2025 documented as of this encounter Results * Folate (06/06/2025 10:26 AM EDT) FOLIC ACID 8.9 4.2 - 19.9 ng/mL [facility] Blood 06/06/2025 10:2 6 AM EDT 06/06/2025 10:30 AM EDT us Aamir Reveles MD LAB BLOOD ORDERABLES Final Resul t [address] [address] documented in this encounter Visit Diagnoses Diagnosis Sleep disorder- Primary Unspecified sleep disturbance Folic acid deficiency Other B-complex deficiencies Acquired hemolytic anemia Acquired hemolytic anemia, unspecified Heterozygous thalassemia Other thalassemia Prediabetes Other abnormal glucose Severe obesity (BMI >= 40) documented in this encounter Additional Health Concerns Assessment Noted Time PHQ-9 Depression Total Score: 16 025 10:15 PM EDT PHQ-2 Depression Total Score: 6 06/05/20 25 10:15 PM EDT documented as of this encounter Care Teams Fingerer Relationship Specialty Start Date End Date Aamir Reveles MD [address] [place] [address] [email or web address] PCP - General Internal Medicine 03/21/23 documented as of this encounter Additional Source Comments The information contained in this document represents components of the legal health record. It is not the complete legal health record.[facility]
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
[2025-06-07 09:03] VITALS: BP 126/84; PULSE 69; O2SAT 95; BMI 40.6
== END 2025-06-07 09:51 | disposition home or self-care (01) ==
LOC: HO.HSMS 08:48
PROVIDERS: PCP Internal Medicine; Visit Provider Physician Assistant Medical
DX: G47.19 Other hypersomnia (principal); R53.82 Chronic fatigue, unspecified; G25.81 Restless legs syndrome
CPT/HCPCS: 99204

== ENCOUNTER → 2025-06-07 08:48 | Outpatient (BNVA) | payer MEDICAID, SELFPAY | PROVIDERS: PCP Internal Medicine; Visit Provider Physician Assistant Medical | DX: G25.81 Restless legs syndrome (principal); R53.82 Chronic fatigue, unspecified; G47.19 Other hypersomnia | CPT/HCPCS: 99202 ==